=== PATIENT | male | born 1960 | race Two or more races ===

== ENCOUNTER 2016-09-10 20:32 | Emergency (ER) | payer OTHER ==
[~2016-09-10] VITALS: Ht 175.3 cm; Wt 68.0 kg
[2016-09-10] MEDS ORDERED: LISI-662 PO (20:47)
[2016-09-10] MEDS ORDERED: ACETAMINOPHEN/CODEINE 300-30 MG TABLET PO ONE (22:45)
[2016-09-10] MEDS ORDERED: BACLOFEN 10 MG TABLET PO ONE (22:45)
[2016-09-10 23:08] VITALS: BP 116/67
== END 2016-09-10 23:23 | disposition home or self-care (01) ==
LOC: EMS 20:40
DX: S39.012A Strain of muscle, fascia and tendon of lower back, initial encounter (principal); I10 Essential (primary) hypertension; F17.210 Nicotine dependence, cigarettes, uncomplicated; X58.XXXA Exposure to other specified factors, initial encounter; Y93.89 Activity, other specified; Y92.89 Other specified places as the place of occurrence of the external cause; Y99.8 Other external cause status
CPT/HCPCS: 99283